=== PATIENT | male | born 1980 | race Two or more races ===

== ENCOUNTER 2016-07-13 20:30 | Emergency (ER) | payer BC ==
[~2016-07-13] VITALS: Ht 185.4 cm; Wt 88.5 kg
[~2016-07-13 20:30] MED LIST: CARV25TA PO; ENAL20TA PO; OMEG1CAP PO; SPIR50TA3 PO; WARF10TA22 PO
--- NOTE | 2016-07-13 22:50 | NUR ---
ASSUME PT CARE. RESTING IN BED. FEVER AND FLU LIKE SYMPTOMS X 1 WEEK. PT IS [employer]. SEEN BY AMARJIT.
[2016-07-13] MEDS ORDERED: ACETAMINOPHEN ES 500 MG TABLET ONE (22:53)
[2016-07-13] MEDS ORDERED: ACETAMINOPHEN 325 MG TABLET PO ONE (23:00)
[2016-07-13 23:04] VITALS: BP 125/74
--- NOTE | 2016-07-13 23:04 | NUR ---
Patient discharged to home in stable condition. Written and verbal after care instructions given. Patient verbalizes understanding of instruction.
== END 2016-07-13 23:06 | disposition home or self-care (01) ==
LOC: ER 20:35
DX: J06.9 Acute upper respiratory infection, unspecified (principal); I10 Essential (primary) hypertension; I25.2 Old myocardial infarction; Z79.01 Long term (current) use of anticoagulants
CPT/HCPCS: A4606; Z7610

== ENCOUNTER 2018-11-16 11:42 | Emergency (ER) | payer BC, MEDICAID, OTHER ==
[~2018-11-16 11:42] MED LIST changes: -SPIR50TA3 PO; +SPIR50TA5 PO
--- NOTE | 2018-11-16 12:12 | NUR ---
CALLED IN WAITING ROOM. NO RESPONSE
--- NOTE | 2018-11-16 12:23 | NUR ---
CALLED IN WAITING ROOM. NO RESPONSE.
== END 2018-11-16 12:51 | disposition left against medical advice (07) ==
LOC: ER 11:42
DX: Z53.21 Procedure and treatment not carried out due to patient leaving prior to being seen by health care provider (principal)

== ENCOUNTER 2018-11-16 14:46 | Emergency (ER) | payer MEDICAID ==
[~2018-11-16] VITALS: Ht 185.4 cm; Wt 79.4 kg
--- NOTE | 2018-11-16 15:01 | NUR ---
PATIENT ARRIVED AT UNIT AMBULATORY WITH REPORT OF L SIDED ABDOMINAL PAIN R/T L FLANK. +NAUSEA, -DYSURIA. PATIENT ACCOMPANIED TO BED AND CONNECTED TO MONITOR. AWAITING FOR MD. WILL CONTINUE TO MONITOR
--- NOTE | 2018-11-16 15:03 | NUR ---
DR ANTHONY AT BEDSIDE
[2018-11-16] MEDS ORDERED: IV NS 0.9% 1,000 ML BAG IV ONE (15:30)
[2018-11-16 15:51] LABS: HEMOGLOBIN 17.5 g/dL (13.5-17.5); LYMPHOCYTES # (AUTO) 1.3 /CMM (0.8-4.8); MEAN CORPUSCULAR VOLUME 84 fL (80-96); MONOCYTES # (AUTO) 0.4 /CMM (0.1-1.30); MONOCYTES % (AUTO) 10.3 % (2.0-12.0); WHITE BLOOD COUNT (AUTO) 3.8 K/uL (4.3-11.0)
[2018-11-16 15:52] LABS: APPEARANCE,URINE CLEAR (CLEAR); BILIRUBIN,URINE 1+ (NEGATIVE); BLOOD, URINE NEGATIVE Ery/uL (NEGATIVE); COLOR,URINE YELLOW (YELLOW); KETONES,URINE TRACE (NEGATIVE); LEUKOCYTE ESTERASE ,URINE NEGATIVE (NEGATIVE); NITRITE, URINE NEGATIVE (NEGATIVE); PROTEIN,URINE TRACE mg/dl (NEGATIVE); UGLUCOSE NEGATIVE (NEGATIVE); UROBILINOGEN,URINE 0.2 EU/dL (0.2)
[2018-11-16 15:57] LABS: CALCIUM, SERUM 9.4 mg/dL (8.5-10.1); CARBON DIOXIDE 27 mmol/L (21-32); CHLORIDE 99 mmol/L (98-107); CREATININE 1.6 mg/dL (0.6-1.3); GLUCOSE 118 mg/dL (74-106); POTASSIUM 3.9 mmol/L (3.5-5.1); SODIUM SERUM 135 mmol/L (136-145); UREA NITROGEN, BLOOD 13 mg/dL (7-18)
[2018-11-16 16:01] LABS: BASOPHILS % (AUTO) 0.8 % (0.0-2.0); HEMATOCRIT 53 % (39-51); LYMPHOCYTES % (AUTO) 33.9 % (20.0-44.0); MEAN CORPUSCULAR HGB CONC 33 g/dl (31.0-36.0); PLATELET COUNT (AUTO) 181 /CMM (150-450); RED BLOOD CELL COUNT(AUTO) 6.23 MIL/uL (4.5-6.0)
[2018-11-16 16:04] LABS: ALANINE AMINOTRANSFERASE 22 U/L (12-78); ALBUMIN 4.2 g/dL (3.4-5.0); ALKALINE PHOSPHATASE 61 U/L (46-116); ASPARTATE AMINOTRANSFERASE 19 U/L (15-37); BILIRUBIN,DIRECT 0.1 mg/dL (0.0-0.2); BILIRUBIN,TOTAL 0.7 mg/dL (0.2-1.0); LIPASE 180 U/L (73-393); TOTAL PROTEIN, SERUM 8.8 g/dL (6.4-8.2)
[2018-11-16 16:15] LABS: BACTERIA,URINE 1+ /HPF (None Seen); SQUAMOUS EPITHELIAL CELL,UR 0-2 /HPF (None Seen)
[2018-11-16 16:16] LABS: MUCUS,URINE Few /LPF (None Seen)
--- NOTE | 2018-11-16 17:22 | NUR ---
IV removed. Catheter intact and site benign. Pressure and 4x4 applied to site. No bleeding noted.Patient discharged to home in stable condition. Written and verbal after care instructions given. Patient verbalizes understanding of instruction.
[2018-11-16 17:24] VITALS: BP 124/76
== END 2018-11-16 17:24 | disposition home or self-care (01) ==
LOC: ER 14:46
DX: R10.12 Left upper quadrant pain (principal); R10.32 Left lower quadrant pain; I25.2 Old myocardial infarction; I10 Essential (primary) hypertension; Z79.01 Long term (current) use of anticoagulants; Z79.899 Other long term (current) drug therapy
CPT/HCPCS: 36415; 74176; 80048; 80076; 81001; 83690; 84484; 85025; 93005; 99284; J7030; 81000-TC

== ENCOUNTER 2020-05-21 21:25 | Emergency (ER) | payer MEDICAID, OTHER ==
[~2020-05-21] VITALS: Ht 185.4 cm; Wt 81.6 kg
[~2020-05-21 21:25] MED LIST changes: -ENAL20TA PO; +ENAL20TA18 PO
--- NOTE | 2020-05-21 21:39 | NUR ---
PT AAOX4. AMBULATORY WITH GAIT. BIBSELF C/O SOB X1 WEEK +WEAKNESS. PT TESTED POSITIVE ON SATURDAY, STATED HE WAS TOLD TO COME TO THE ED IF HIS SAT ARE BELOW 92%. PT STATED SAT WERE 91%. UPON TRIAGE PT SAT 98%, NO ACUTE DISTRESS NOTED. PT TOOK TYLENOL 1G AT 0330 TODAY. TEMP 99.1. PT PLACED ON MONITOR AND PULSE OX. AWAITING ER MD FOR EVAL AND ORDERS.
[2020-05-21 22:05] LABS: BASOPHILS % (AUTO) 1.7 % (0.0-2.0); HEMATOCRIT 45 % (39-51); HEMOGLOBIN 15.1 g/dL (13.5-17.5); LYMPHOCYTES % (AUTO) 45.3 % (20.0-44.0); MEAN CORPUSCULAR HGB CONC 34 g/dl (31.0-36.0); MEAN CORPUSCULAR VOLUME 83 fL (80-96); MONOCYTES # (AUTO) 0.2 /CMM (0.1-1.30); MONOCYTES % (AUTO) 6.9 % (2.0-12.0); NEUTROPHILS % (AUTO) 45.1 % (43.0-81.0); PLATELET COUNT (AUTO) 118 /CMM (150-450); RED BLOOD CELL COUNT(AUTO) 5.43 MIL/uL (4.5-6.0); WHITE BLOOD COUNT (AUTO) 2.2 K/uL (4.3-11.0)
[2020-05-21 22:09] LABS: CALCIUM, SERUM 8.6 mg/dL (8.5-10.1); CREATININE 1.6 mg/dL (0.6-1.3); POTASSIUM 4.8 mmol/L (3.5-5.1)
[2020-05-21 22:17] LABS: ALBUMIN 3.1 g/dL (3.4-5.0); BILIRUBIN,TOTAL 0.4 mg/dL (0.2-1.0); TOTAL PROTEIN, SERUM 7.3 g/dL (6.4-8.2)
--- NOTE | 2020-05-21 23:18 | NUR ---
Patient discharged to home in stable condition. Written and verbal after care instructions given. Patient verbalizes understanding of instruction. pt ambulatory with a steady gait
[2020-05-21 23:22] VITALS: BP 115/70
[2020-05-21 23:36] LABS: BAND % (MANUAL) 4 % (0.0-5.0); LYMPHOCYTES % (MANUAL) 38 % (16-48); MONOCYTES % (MANUAL) 6 % (0-11.0); NEUTROPHILS % (MANUAL) 52 (42-76)
== END 2020-05-21 23:18 | disposition home or self-care (01) ==
LOC: ER 21:28
DX: U07.1 COVID-19 (principal); R06.02 Shortness of breath; I25.2 Old myocardial infarction; I10 Essential (primary) hypertension; Z98.890 Other specified postprocedural states; Z79.84 Long term (current) use of oral hypoglycemic drugs; Z79.899 Other long term (current) drug therapy
CPT/HCPCS: 36415; 71045-TC; 80053-TC; 85025-TC; 85610-TC